=== PATIENT | male | born 1960 | race Caucasian/White ===

== ENCOUNTER 2020-08-19 09:05 | Emergency (ER) | payer BC ==
[~2020-08-19] VITALS: Ht 177.8 cm; Wt 127.9 kg
[2020-08-19] MEDS ORDERED: SULTRIDS PO (11:06)
== END 2020-08-19 11:16 | disposition home or self-care (01) ==
LOC: ER 09:05
DX: L02.416 Cutaneous abscess of left lower limb (principal); L03.116 Cellulitis of left lower limb
CPT/HCPCS: 10061; 36415; 87070; 87075; 87205; 99283-25

== ENCOUNTER 2023-02-26 14:24 | Day surgery (SDC) | payer BC ==
[~2023-02-26] VITALS: Ht 177.8 cm; Wt 141.9 kg
[~2023-02-26 14:24] MED LIST: SULTRIDS PO
[2023-02-26] MEDS ORDERED: METFORMIN500 MG/51 (14:53)
[2023-02-26] MEDS ORDERED: LEVOTHYROXINE50 MC9 (14:54)
[2023-02-26] MEDS ORDERED: HYDCHL25 (14:54)
--- NOTE | 2023-02-26 16:47 | NUR ---
02/26/23 1647 Dinah Ponce PT UPDATED ON WAIT TIME. CALL LIGHT IN REACH. DOC.
[2023-02-26 18:15] VITALS: BP 127/92
--- NOTE | 2023-02-26 18:16 | NUR ---
02/26/23 1816 Dinah Ponce IV DC'D CATH INTACT. PT TOLERATED WELL. GAUZE/COBAN IN PLACE
== END 2023-02-26 18:17 | disposition home or self-care (01) ==
LOC: ORSCSDS 14:24
PROVIDERS: Internal Medicine Gastroenterology
PROC: 0D757ZZ Dilation of Esophagus, Via Natural or Artificial Opening (ICD-10-PCS; principal; 2023-02-26 15:45)
PROC: 0DB58ZX Excision of Esophagus, Via Natural or Artificial Opening Endoscopic, Diagnostic (ICD-10-PCS; principal; 2023-02-26 15:45)
PROC: 0DB78ZX Excision of Stomach, Pylorus, Via Natural or Artificial Opening Endoscopic, Diagnostic (ICD-10-PCS; principal; 2023-02-26 15:45)
DX: R13.10 Dysphagia, unspecified (principal); K21.9 Gastro-esophageal reflux disease without esophagitis; K29.70 Gastritis, unspecified, without bleeding; B96.81 Helicobacter pylori [H. pylori] as the cause of diseases classified elsewhere; I10 Essential (primary) hypertension; G47.33 Obstructive sleep apnea (adult) (pediatric); F17.210 Nicotine dependence, cigarettes, uncomplicated; E11.9 Type 2 diabetes mellitus without complications; E03.9 Hypothyroidism, unspecified; E66.01 Morbid (severe) obesity due to excess calories; Z68.42 Body mass index [BMI] 45.0-49.9, adult; Z79.84 Long term (current) use of oral hypoglycemic drugs; Z79.899 Other long term (current) drug therapy
CPT/HCPCS: 82947; 88305; 88342; J0461; J2001; J2405; J2704; J3010; J7120; Q9968

== ENCOUNTER → 2023-04-25 | Outpatient (CLI) | payer BC ==
[~2023-04-25] MED LIST changes: +HYDCHL25; +LEVOTHYROXINE50 MC9; +METFORMIN500 MG/51
== END | disposition home or self-care (01) ==
LOC: LAB 14:58 → LAB SHORT 14:58
DX: K29.50 Unspecified chronic gastritis without bleeding (principal); B96.81 Helicobacter pylori [H. pylori] as the cause of diseases classified elsewhere; A04.8 Other specified bacterial intestinal infections
CPT/HCPCS: 87338